=== PATIENT | male | born 1995 | race Two or more races ===

== ENCOUNTER 2025-06-03 11:55 | Emergency (ER) | payer MEDICAID ==
[~2025-06-03] VITALS: Ht 157.5 cm; Wt 85.0 kg
[~2025-06-03 11:55] MED LIST: DEXA0.75 PO; FLUD0.1T2 PO; HYDR-4379 PO; LOPE2CAP PO; MIDO5TAB4 PO
[2025-06-03 12:02] VITALS: O2SAT 98
[2025-06-03 13:59] LABS: BASOPHILS % 1.2 % (0.0-2.0); EOSINOPHILS % 3.9 % (0.0-5.0); HEMATOCRIT. 42.1 % (42.0-52.0); HEMOGLOBIN. 14.6 g/dL (14.0-18.0); LYMPHOCYTES % 35.7 % (20.0-50.0); MEAN PLATELET VOLUME 8.1 fl (7.4-10.4); MONOCYTES % 7.9 % (2.0-8.0); NEUTROPHILS % 51.3 % (40.0-76.0); PLATELET 414 x1000/uL (130-400); RED BLOOD CELL COUNT 5.17 mill/uL (4.7-6.1); RED CELL DISTRIBUTION WIDTH 13.7 % (11.6-14.6)
[2025-06-03 14:13] LABS: CREATININE 0.9 mg/dL (0.6-1.3); UREA NITROGEN BLOOD 10 mg/dL (9-23)
[2025-06-03 16:39] LABS: GLUCOSE URINE NEGATIVE (NEGATIVE); KETONES URINE NEGATIVE (NEGATIVE)
[2025-06-03] MEDS ORDERED: LACT10SO81 MT (17:24)
[2025-06-03 17:27] LABS: CLARITY URINE CLEAR (CLEAR); COLOR URINE YELLOW (YELLOW)
[2025-06-03 17:28] LABS: LEUKOCYTE ESTERASE URINE NEGATIVE (NEGATIVE); NITRITE URINE NEGATIVE (NEGATIVE); OCCULT BLOOD URINE TRACE (NEGATIVE); PH URINE 5.0 (4.5-8.0); PROTEIN URINE 1+ (NEGATIVE); SPECIFIC GRAVITY URINE 1.018 (1.005-1.030); UROBILINOGEN URINE 0.2 E.U./dL (0.2-1.0)
[2025-06-03 17:29] LABS: RBC URINE NONE SEEN /hpf (0-2); WBC URINE NONE SEEN /hpf (0-2)
[2025-06-03 17:30] LABS: BACTERIA URINE TRACE; SQUAMOUS EPITHELIAL CELL URINE FEW /lpf (RARE/1+)
[2025-06-03 17:43] VITALS: BP 112/76; PULSE 89; RESP 18; TEMP 36.8; O2SAT 99
== END 2025-06-03 17:51 | disposition home or self-care (01) ==
LOC: ER 11:55
DX: K59.00 Constipation, unspecified (principal); Z88.6 Allergy status to analgesic agent
CPT/HCPCS: 36415; 74018; 80048; 81003; 85025; 99284